=== PATIENT | female | born 1945 | race Caucasian/White ===

== ENCOUNTER 2023-08-26 09:45 | Outpatient (RCR) | payer MEDICARE, BC, SELFPAY | END 2023-12-24 23:59 | disposition home or self-care (01) | PROVIDERS: PCP Family Medicine; Visit Provider Family Medicine | DX: M70.62 Trochanteric bursitis, left hip (principal); M76.32 Iliotibial band syndrome, left leg; R26.9 Unspecified abnormalities of gait and mobility; M79.18 Myalgia, other site; M25.562 Pain in left knee; M54.9 Dorsalgia, unspecified; R29.898 Other symptoms and signs involving the musculoskeletal system; Z51.89 Encounter for other specified aftercare | CPT/HCPCS: 97110; 97140; 97162 ==

== ENCOUNTER 2025-04-21 12:23 | Outpatient (CLI) | payer MEDICARE, BC, SELFPAY ==
--- NOTE | 2025-04-21 13:07 | P.ANES_ITS ---
Anesthesia Charges Start Date/Time Anesthesia Start Date: 04/21/25 Anesthesia Start Time: 13:05 Stop Date/Time Anesthesia Stop Date: 04/21/25 Anesthesia Stop Time: 13:47 Summary Extremes of Age - Over 70 or under 1: MDA Coding CPT Codes CPT Codes: ANES UPR LWR GI NDSC PX - 14281 ([id number]) P2 - PATIENT W/MILD SYST DISEASE, QK - SPECIAL DELIVERY CLERK 2-4 CNCRNT ANES PROC, QX - STAINLESS STEEL FINISHER SVC W/ MD MED DIRECTION Additional Codes: Summary - Extremes of Age - Over 70 or under 1: MDA ([id number])
--- NOTE | 2025-04-21 13:07 | W.ANESCHARGE ---
Anesthesia Charges Start Date/Time Anesthesia Start Date: 04/21/25 Anesthesia Start Time: 13:05 Stop Date/Time Anesthesia Stop Date: 04/21/25 Anesthesia Stop Time: 13:47 Summary Extremes of Age - Over 70 or under 1: MDA Coding CPT Codes CPT Codes: ANES UPR LWR GI NDSC PX - 37462 ([id number]) P2 - PATIENT W/MILD SYST DISEASE, QK - SOFT WORK WRAPPER LAYER AND EXAMINER 2-4 CNCRNT ANES PROC, QX - WIRELESS TEAM MEMBER SVC W/ MD MED DIRECTION Additional Codes: Summary - Extremes of Age - Over 70 or under 1: MDA ([id number])
--- NOTE | 2025-04-21 13:49 | P.ANES_ITS ---
Anesthesia Charges Start Date/Time Anesthesia Start Date: 04/21/25 Anesthesia Start Time: 13:05 Stop Date/Time Anesthesia Stop Date: 04/21/25 Anesthesia Stop Time: 13:47 Summary Extremes of Age - Over 70 or under 1: BAKERY DEMONSTRATOR Coding CPT Codes CPT Codes: ANES UPR LWR GI NDSC PX - 26692 ([id number]) P2 - PATIENT W/MILD SYST DISEASE, QK - WEBBING WEAVER 2-4 CNCRNT ANES PROC, QX - BAKERY DEMONSTRATOR SVC W/ MD MED DIRECTION Additional Codes: Summary - Extremes of Age - Over 70 or under 1: BAKERY DEMONSTRATOR ([id number])
--- NOTE | 2025-04-21 13:49 | W.ANESCHARGE ---
Anesthesia Charges Start Date/Time Anesthesia Start Date: 04/21/25 Anesthesia Start Time: 13:05 Stop Date/Time Anesthesia Stop Date: 04/21/25 Anesthesia Stop Time: 13:47 Summary Extremes of Age - Over 70 or under 1: PEST CONTROL CHEMICAL TECHNICIAN Coding CPT Codes CPT Codes: ANES UPR LWR GI NDSC PX - 37409 ([id number]) P2 - PATIENT W/MILD SYST DISEASE, QK - SENIOR LINUX SYSTEMS ENGINEER 2-4 CNCRNT ANES PROC, QX - PEST CONTROL CHEMICAL TECHNICIAN SVC W/ MD MED DIRECTION Additional Codes: Summary - Extremes of Age - Over 70 or under 1: PEST CONTROL CHEMICAL TECHNICIAN ([id number])
== END 2025-04-21 12:24 | disposition home or self-care (01) ==
LOC: OP CLINIC 12:23
PROVIDERS: PCP Family Medicine; Visit Provider Internal Medicine Gastroenterology
DX: K25.9 Gastric ulcer, unspecified as acute or chronic, without hemorrhage or perforation (principal); K44.9 Diaphragmatic hernia without obstruction or gangrene; D50.9 Iron deficiency anemia, unspecified; K57.30 Diverticulosis of large intestine without perforation or abscess without bleeding
CPT/HCPCS: 00813; 43239; 45378; 88305; 99100; J2405; J2704

== ENCOUNTER 2025-05-31 08:48 | Day surgery (SDC) | payer MEDICARE, BC, SELFPAY ==
[2025-05-31] VITALS (23 sets, daily range): BP systolic 95–136; BP diastolic 60–97; PULSE 55–81; RESP 12–20; TEMP 36.1–37.2; O2SAT 94–100; BMI 24.9
[2025-05-31] MEDS: SODIUM CHLORIDE 0.9 % (FLUSH) 10 ML SYRINGE IVF (09:10)
[2025-05-31] MEDS: LACTATED RINGERS 1000 ML 1,000 ML 100 ML IV ×2 (09:10→10:44)
[2025-05-31] MEDS: ACETAMINOPHEN 500 MG TABLET 1000 MG PO ×3 (09:11→21:24)
[2025-05-31] MEDS: OXYCODONE (CR) 10 MG TAB.ER.12H PO (09:12)
[2025-05-31] MEDS: MIDAZOLAM HCL 1 MG/ML inj IVP (09:42)
--- NOTE | 2025-05-31 10:09 | CRLHL7_ITS ---
For Patients: As a result of the Cures Act, medical imaging exams and procedure reports are released immediately into your electronic medical record. You may view this report before your referring provider. If you have questions, please contact your health care provider. INDICATION: Postop TECHNIQUE: Two views of the left knee FINDINGS/IMPRESSION: Left knee arthroplasty in appropriate position postoperative soft tissue gas and edema. Dictated by Mariella Esquivel MD @ 06/02/2025 4:02:34 PM (Electronically Signed)
--- NOTE | 2025-05-31 10:11 | W.PM.H&PU ---
History & Physical Update History & Physical Update H&P Reviewed and patient assessed: No changes noted
[2025-05-31] MEDS: TRANEXAMIC ACID 100 MG/ML INJ 1000 MG IV (10:20)
--- NOTE | 2025-05-31 11:31 | PM.ORPRC ---
Procedure Note Date of procedure: 05/31/25 Procedure: PREOPERATIVE DIAGNOSIS: 1. Left knee osteoarthritis, primary, severe POSTOPERATIVE DIAGNOSIS: 1. Left knee osteoarthritis, primary, severe PROCEDURE: 1. Left total knee arthroplasty - subvastus SURGEON: Juan Mtz MD. POLYSOMNOGRAPHY TECH: ALEXYS Banuelos - Of note, a skilled back office medical assistant was critical for this case to aid in patient positioning, tissue retraction, limb manipulation/positioning, and closure. ANESTHESIA: Spinal anesthetic EBL: 50ml IMPLANTS: DePuy J&J all cemented TKA - Attune PS femur size 5 narrow Size 4 tibia 7 mm poly spacer 35 mm patella TOURNIQUET: 49 minutes at 250 torr COMPLICATIONS: None evident INDICATIONS: The patient is a pleasant 80-year-old female who has experienced severe left knee pain and difficulty bearing weight. Workup included x-rays which revealed severe osteoarthrosis in the knee. Given the deformity, the dysfunction, and the pain, as well as the failure of nonoperative management, recommendation was made for surgery. FINDINGS: Full-thickness cartilage loss throughout the lateral compartment and to a lesser degree medial and patellofemoral compartments. Degenerative meniscus pathology lateral greater than medial. Large effusion upon entering the joint. Resting genu valgum. DESCRIPTION OF PROCEDURE: Following a thorough discussion of risks, benefits, and alternatives consent was obtained and the left knee was marked. The patient was brought to the operating room and placed supine on the operating table. Induction of anesthesia was undertaken. 1 g IV Ancef and 1 g tranexamic acid was administered within 1 hr of incision preoperatively. Proper time-out was performed identifying proper patient, site, procedure. The operative extremity was prepped and draped in the appropriate sterile fashion using ChloraPrep after the patient was positioned supine with all bony prominences well padded. A longitudinal, anterior, midline skin incision was made starting approximately 3cm proximal to the superior pole of the patella and advanced distal to the tibial tubercle. A subvastus approach was utilized. A medial subperiosteal sleeve was created with knife, guzman elevator and curved osteotome. The retropatellar fatpad was resected and the synovium in the suprapatellar pouch excised to visualize the anterior femoral cortex. Femoral preparation was performed via an intramedullary guide. Step drill allowed access into the femoral canal. The distal cutting guide was placed with 6 ? of valgus and 11 mm cut on the distal femur. Femur was sized using a posterior referencing guide in 5? of external rotation after cross referencing with trans epicondylar access and Sudhakar's line. This found have a best fit with the sizing noted above. The 4 in 1 cutting block was then placed, and the distal femur shaped accordingly. The box cut was then created and the trial implant inserted to confirm appropriate fit. We turned our attention to the proximal tibia. Extramedullary guide was utilized for cutting with the goal of being 90 degree cut from the mechanical axis of the tibia in the varus/valgus plane utilizing tibial crest as the primary alignment. Initially a 3 mm resection was performed from the lateral tibial plateau. Ultimately, balancing was achieved in both flexion and extension in both varus and valgus. (Of note, the genu valgum required popliteal release to achieve appropriate balance.) The knee was able to achieve full extension as well comfortably. The patella was initially measured and found have a thickness of 23 mm. It was resected back to approximately 14 mm. It was sized to be a best fit with as noted above. This was drilled, trial placed. All trials were placed and found to have an excellent stability and balance. At this stage, trial implants were removed, the knee was thoroughly irrigated with normal saline, and the cement was mixed. After irrigation, the knee was thoroughly dried, and cement placed, with the real tibial and femoral implants placed along with the patella. Trial poly spacer was placed and confirmed to have excellent range of motion and full extension, and the real poly spacer opened and inserted. All extra cement was removed, and a 3 min Betadine soak performed. Finally, a final irrigation round with normal saline was performed. Closure performed with 0 PDS and #0 Stratafix for the quad tendon/retinaculum. 2-0 Vicryl/Stratafix for the subcutaneous and 4-0 Monocryl for subcuticular closure. Dressings were applied and the patient was awoken from anesthesia after the tourniquet deflated and transferred the PACU in stable condition. A skilled back office medical assistant was critical for this case to aid in patient positioning, tissue retraction, bone exposure, limb manipulation/positioning, patient safety, and closure. PLAN: 1. Weight bear as tolerated operative extremity. 2. 23 hr perioperative antibiotics. 3. Ice. 4. PT/OT consults for ambulation assistance/mobility education. 5. Social work consult for discharge planning. 6. DVT prophylaxis with at SCDs and aspirin twice daily.
--- NOTE | 2025-05-31 11:47 | P.ANES_ITS ---
Anesthesia Charges Start Date/Time Anesthesia Start Date: 05/31/25 Anesthesia Start Time: 09:57 Stop Date/Time Anesthesia Stop Date: 05/31/25 Anesthesia Stop Time: 12:05 Summary Extremes of Age - Over 70 or under 1: MDA Coding CPT Codes CPT Codes: ANESTH KNEE ARTHROPLASTY - 40490 ([id number]) P2 - PATIENT W/MILD SYST DISEASE, QK - LACTATION COORDINATOR 2-4 CNCRNT ANES PROC, QX - PAVING INSPECTOR SVC W/ MD MED DIRECTION Additional Codes: Summary - Extremes of Age - Over 70 or under 1: MDA ([id number])
--- NOTE | 2025-05-31 11:47 | W.ANESCHARGE ---
Anesthesia Charges Start Date/Time Anesthesia Start Date: 05/31/25 Anesthesia Start Time: 09:57 Stop Date/Time Anesthesia Stop Date: 05/31/25 Anesthesia Stop Time: 12:05 Summary Extremes of Age - Over 70 or under 1: MDA Coding CPT Codes CPT Codes: ANESTH KNEE ARTHROPLASTY - 43405 ([id number]) P2 - PATIENT W/MILD SYST DISEASE, QK - ASSISTANT COMMUNITY MANAGER 2-4 CNCRNT ANES PROC, QX - HEAT TREATING BLUER SVC W/ MD MED DIRECTION Additional Codes: Summary - Extremes of Age - Over 70 or under 1: MDA ([id number])
--- NOTE | 2025-05-31 12:03 | P.ANES_ITS ---
Anesthesia Charges Start Date/Time Anesthesia Start Date: 05/31/25 Anesthesia Start Time: 09:57 Stop Date/Time Anesthesia Stop Date: 05/31/25 Anesthesia Stop Time: 12:05 Summary Extremes of Age - Over 70 or under 1: SUPERVISOR ACCOUNTS RECEIVABLE Coding CPT Codes CPT Codes: ANESTH KNEE ARTHROPLASTY - 50308 ([id number]) P2 - PATIENT W/MILD SYST DISEASE, QK - SENIOR ENGINEERING TECH 2-4 CNCRNT ANES PROC, QX - SUPERVISOR ACCOUNTS RECEIVABLE SVC W/ MD MED DIRECTION Additional Codes: Summary - Extremes of Age - Over 70 or under 1: SUPERVISOR ACCOUNTS RECEIVABLE ([id number])
--- NOTE | 2025-05-31 12:03 | W.ANESCHARGE ---
Anesthesia Charges Start Date/Time Anesthesia Start Date: 05/31/25 Anesthesia Start Time: 09:57 Stop Date/Time Anesthesia Stop Date: 05/31/25 Anesthesia Stop Time: 12:05 Summary Extremes of Age - Over 70 or under 1: FOREIGN LANGUAGE INSTRUCTOR Coding CPT Codes CPT Codes: ANESTH KNEE ARTHROPLASTY - 10020 ([id number]) P2 - PATIENT W/MILD SYST DISEASE, QK - PUMPER HEAD 2-4 CNCRNT ANES PROC, QX - FOREIGN LANGUAGE INSTRUCTOR SVC W/ MD MED DIRECTION Additional Codes: Summary - Extremes of Age - Over 70 or under 1: FOREIGN LANGUAGE INSTRUCTOR ([id number])
--- NOTE | 2025-05-31 12:05 | SUR.PREOP ---
TIME?OUT:?0942 PT/RN/MDA?VERIFICATION?OF?SURGICAL?SITE,?PROCEDURE,?AND?CONSENT OBTAINED?PRIOR?TO?INVASIVE?PROCEDURE.
--- NOTE | 2025-05-31 12:06 | P.NB_ITS ---
Nerve Block Nerve Block Time Seen by Provider: 09:45 Date Seen: 05/31/25 Type of block requested by surgeon for post-operative analgesia: geniculars Side: left Time out performed: Yes Verification of patient name: Yes Verification of date of : Yes Site marking: site marked Name of person performing procedure: Luigi Continuous monitoring Was continuous monitoring of O2 sat, B/P, monitoring coordinator, recorded every 15 minutes?: Yes Procedure Checklist: sterile prep, needles and gloves Ultrasound guided. Images saved: Yes Medications given in 5ml increments after negative aspiration: Marcaine %: 0.25 mL: 9 Needle gauge: 25 Patient tolerated procedure well: Yes Block Charges Block Charge (with Pro Fee): Genicular Nerve Block
--- NOTE | 2025-05-31 12:06 | P.NB_ITS ---
Nerve Block Nerve Block Time Seen by Provider: 09:45 Date Seen: 05/31/25 Type of block requested by surgeon for post-operative analgesia: adductor canal Side: left Time out performed: Yes Verification of patient name: Yes Verification of date of : Yes Site marking: site marked Name of person performing procedure: Luigi Continuous monitoring Was continuous monitoring of O2 sat, B/P, monitoring engineer, recorded every 15 minutes?: Yes Procedure Checklist: sterile prep, needles and gloves Ultrasound guided. Images saved: Yes Medications given in 5ml increments after negative aspiration: Marcaine %: 0.25 mL: 15 Needle gauge: 20 Precedex (mcg): 25 Patient tolerated procedure well: Yes Block Charges Block Charge (with Pro Fee): Femoral Nerve Use of Ultrasound Machine for Block: Yes- US Guidance/pain block
[2025-05-31] MEDS: LACTATED RINGERS 1000 ML 1,000 ML 75 ML IV (13:10)
--- NOTE | 2025-05-31 14:58 | PC.NURSE ---
End of shift Note: Patient arrived from PACU around 1245. Alert and oriented no complaints of pain of nausea. Her blood pressure was a little soft to start with but has slowly trended up. Does not have much feeling in her legs but able to move her extremities. Will continue to monitor until next shift arrives.
--- NOTE | 2025-05-31 15:31 | PM.IMCN1 ---
Date of Consult Patient: Shahzad Patient Consult date: 05/31/25 Requesting Physician: Orthopedics Primary Care Provider: Jolie Rodrigues, DO Consult Narrative Reason for consult: Postop care hypertension, hypothyroidism, hypertensive kidney disease Narrative: Debbie Meng is a 80 year old woman undergoes elective left total knee arthroplasty today at [facility] with Dr. Juan Mtz under spinal anesthesia. Procedure uneventful. No complications. Estimated blood loss reported as 50 mL. Generally healthy and doing well with current medication regimen. Review of Systems Status of ROS: Reports: 6 or more systems reviewed and unremarkable except as noted in History and below [facility] Medical History (Updated 05/31/25 @ 15:44 by Chiki Holloway MD) OA (osteoarthritis) of knee ?M17.9 - Osteoarthritis of knee, unspecified (ICD-10) Gastritis ?K29.70 - Gastritis, unspecified, without bleeding (ICD-10) Synovitis and tenosynovitis in diseases classified elsewhere ?M65.80 - Other synovitis and tenosynovitis, unspecified site (ICD-10) Palmar wrist ganglion ?M67.439 - Ganglion, unspecified wrist (ICD-10) Gum inflammation ?K05.10 - Chronic gingivitis, plaque induced (ICD-10) Hypothyroidism ?E03.9 - Hypothyroidism, unspecified (ICD-10) Chronic fatigue syndrome ?G93.32 - Myalgic encephalomyelitis/chronic fatigue syndrome (ICD-10) Hypertension ?I10 - Essential (primary) hypertension (ICD-10) Migraines ?G43.909 - Migraine, unspecified, not intractable, without status migrainosus (ICD-10) Surgical History (Updated 05/31/25 @ 15:44 by Chiki Holloway MD) H/O tubal ligation ?Z98.51 - Tubal ligation status (ICD-10) S/P breast lumpectomy ?Z98.890 - Other specified postprocedural states (ICD-10) History of bunionectomy of both great toes (11/26/95) ?Z98.890 - Other specified postprocedural states (ICD-10) History of laparoscopic cholecystectomy ?Z90.49 - Acquired absence of other specified parts of digestive tract (ICD-10) History of carpal tunnel surgery of left wrist (08/03/12) ?Z98.890 - Other specified postprocedural states (ICD-10) History of carpal tunnel surgery of right wrist (09/21/12) ?Z98.890 - Other specified postprocedural states (ICD-10) 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) ?Z96.651 - Presence of right artificial knee joint (ICD-10) Social History What is your current living situation?: I presently have a place to live Problems where you live: no known problems In the past 12 months, utilities in danger of being shut off: no In past 12 months, lack of transportation kept you from medical appts, meetings, work, or getting things needed for daily living: no In the past 12 mos, have been you worried that your food would run out before you had money to buy more?: never true In the past 12 mos, the food you bought just didn't last and you didn't have money to buy more?: never true Smoking Status: Never smoker How often do you have a drink containing alcohol: monthly or less How many standard drinks containing alcohol do you have on a typical day: 1 or 2 How often do you have six or more drinks on one occasion: Never AUDIT-C Alcohol total score: 1 Non-prescribed substance use: denies use Caffeine: Yes (once in a while) How often does anyone, including family, friends and others, physically hurt you: never How often does anyone, including family, friends and others, insult or talk down to you: never How often does anyone, including family, friends and others, threaten you with harm: never How often does anyone, including family, friends and others, scream or curse at you: never Meds Home Medications and Allergies Home Medications ?Medication ?Instructions ?Recorded ?Confirmed ?Type chlorthalidone 25 mg tablet 25 mg PO DAILY 02/06/25 05/31/25 History levothyroxine 75 mcg tablet 75 mcg PO DAILY 02/06/25 05/31/25 History rosuvastatin 10 mg tablet 10 mg PO QPM 02/06/25 05/31/25 History sumatriptan succinate 50 mg tablet 50 mg PO Q2H PRN migraine 02/06/25 05/31/25 History omeprazole 40 mg capsule,delayed 40 mg PO DAILY 05/29/25 05/29/25 History release acetaminophen 500 mg capsule 500 - 1,000 mg (1 - 2 x 500 mg) PO 05/31/25 Rx Q6H PRN pain #100 caps aspirin 81 mg chewable tablet 81 mg PO BID for DVT prophylaxis 05/31/25 Rx (Aspirin Childrens) 30 days #60 tabs oxycodone 5 mg tablet 2.5 - 5 mg (0.5 - 1 x 5 mg) PO 05/31/25 Rx Q4-6H PRN Pain #42 tabs sennosides 8.6 mg tablet (Senna 17.2 mg (2 x 8.6 mg) PO BID PRN 05/31/25 Rx Lax) constipation #100 tabs Allergies Allergy/AdvReac Type Severity Reaction Status Date / Time amlodipine AdvReac Verified 05/31/25 09:01 codeine AdvReac Verified 05/31/25 09:01 lisinopril AdvReac Verified 05/31/25 09:01 Exam Narrative: Exam Narrative: Examined patient in her hospital room. Appears comfortable and in no acute distress. Alert and oriented x4. Friendly, articulate, cooperative. Vision and hearing are good. Neck is supple. No JVD or hepatojugular reflux. Lungs are clear to auscultation. Heart tones with regular rhythm, normal S1-S2. Abdomen with active bowel sounds, soft, nontender. Palpable pulses upper and lower extremities. No edema. Already moves all 4 extremities including affected left lower extremity. Const: Vital Signs, click to edit/add: Vital Signs - 24 hr 05/31/25 09:19 05/31/25 09:43 05/31/25 09:45 Temperature 99 F 99 F Pulse Rate 72 72 67 Pulse Rate [Pulse Oximeter] Respiratory Rate 16 16 16 Blood Pressure 127/89 108/93 H 110/70 Blood Pressure [Ri ght Arm] Pulse Oximetry 96 98 98 Oxygen Delivery Me thod Nasal Cannula Nasal Cannula Oxygen Flow Rate 2 2 05/31/25 12:00 05/31/25 12:05 05/31/25 12:10 Temperature 97.4 F L Pulse Rate 67 63 62 Pulse Rate [Pulse Oximeter] Respiratory Rate 14 14 12 Blood Pressure 101/62 105/60 99/62 Blood Pressure [Ri ght Arm] Pulse Oximetry 95 100 100 Oxygen Delivery Me thod Nasal Cannula OxyM ask OxyMask OxyMask Oxygen Flow Rate 10 10 6 05/31/25 12:15 05/31/25 12:20 05/31/25 12:25 Temperature 97.3 F L Pulse Rate 65 66 63 Pulse Rate [Pulse Oximeter] Respiratory Rate 14 16 16 Blood Pressure 98/62 98/62 98/63 Blood Pressure [Ri ght Arm] Pulse Oximetry 100 97 96 Oxygen Delivery Me thod OxyMask Room Air Room Air Oxygen Flow Rate 6 05/31/25 12:30 05/31/25 12:42 05/31/25 12:45 Temperature 97.3 F L 97.0 F L 97.0 F L Pulse Rate 68 Pulse Rate [Pulse Oximeter] 65 69 Respiratory Rate 14 20 20 Blood Pressure 103/63 Blood Pressure [Ri ght Arm] 97/66 107/66 Pulse Oximetry 95 97 97 Oxygen Delivery Me thod Room Air Room Air Room Air Oxygen Flow Rate 05/31/25 13:00 05/31/25 13:15 05/31/25 13:30 Temperature 97.0 F L 97.1 F L 97.1 F L Pulse Rate Pulse Rate [Pulse Oximeter] 67 56 L 55 L Respiratory Rate 20 20 20 Blood Pressure Blood Pressure [Ri ght Arm] 95/78 114/68 111/65 Pulse Oximetry 98 96 96 Oxygen Delivery Me thod Room Air Room Air Room Air Oxygen Flow Rate 05/31/25 13:45 05/31/25 14:00 05/31/25 14:30 Temperature 97.1 F L 97.1 F L 97.1 F L Pulse Rate Pulse Rate [Pulse Oximeter] 55 L 71 62 Respiratory Rate 20 20 20 Blood Pressure Blood Pressure [Ri ght Arm] 107/74 103/85 116/86 Pulse Oximetry 96 97 97 Oxygen Delivery Me thod Room Air Room Air Room Air Oxygen Flow Rate Assessment and Plan Assessment and plan (1) Osteoarthritis of left knee: Problem comment: Status post left total knee arthroplasty 05/31/2025 Status: Acute (2) Status post left knee replacement: Problem comment: Dr. Juan Mtz, [facility], 05/31/2025 Check postop hemoglobin Status: Acute (3) Hypertension: Problem comment: Will hold her chlorthalidone while in hospital and restarted it at time of discharge Check basic metabolic panel postop Status: Acute (4) CKD (chronic kidney disease) stage 3, GFR 30-59 ml/min: Problem comment: Check postop basic metabolic panel Status: Acute (5) Hypothyroidism: Problem comment: Resume levothyroxine postop Status: Acute Plan 1. Reviewed impression, plan, recommendations with patient and 2. Answered their questions to their satisfaction 3. Hospitalist service will follow patient while in hospital postop 4. Completed hospitalist portion of discharge for patient anticipating patient might be able to be discharged as early as tomorrow per Orthopedic surgery 5. Patient agreeable to above stated plans and recommendations Total Time Spent Total Time Spent: 50 minutes
[2025-05-31] MEDS: CEFAZOLIN 1 GM in 0.9 % SODIUM CHLORIDE Mini-bag 100 ML IVPB (17:29)
--- NOTE | 2025-05-31 19:47 | PC.NURSE ---
Active ice to knee and popiteal. Up with SBA, walker, & gait belt to bathroom. Tolerates regular diet, denies n/v. Pain controlled with PRN meds per DEC.
[2025-05-31] MEDS: SENNOSIDES 1 TAB TABLET 2 TAB PO (21:24)
[2025-05-31] MEDS: ASPIRIN 81 MG TABLET EC PO (21:35)
[2025-06-01 00:23] VITALS: RESP 17; O2SAT 95
[2025-06-01] MEDS: CEFAZOLIN 1 GM in 0.9 % SODIUM CHLORIDE Mini-bag 100 ML IVPB ×2 (00:35→07:59)
[2025-06-01 00:40] VITALS: BP 123/76; PULSE 80; RESP 17; TEMP 36.7; O2SAT 95
[2025-06-01 02:33] VITALS: BP 116/66; PULSE 70; RESP 17; TEMP 36.6; O2SAT 96
[2025-06-01] MEDS: ACETAMINOPHEN 500 MG TABLET 1000 MG PO (04:23)
[2025-06-01] MEDS: OMEPRAZOLE 20 MG CAPSULE DR 40 MG PO (06:33)
[2025-06-01] MEDS: LEVOTHYROXINE 75 MCG TABLET PO (06:34)
[2025-06-01 06:46] LABS: Hematocrit 31.2 % (33.0-51.0); Hemoglobin* 10.5 gm/dL (12.0-16.0); Mean Corpuscular HGB Conc 34 gm/dL (32-36); Mean Corpuscular Hemoglobin 31 pg (26-34); Mean Corpuscular Volume 91 fL (80-100); Red Blood Count 3.44 m/uL (4.00-5.20); White Blood Count* 8.67 K/uL (4.50-11.00)
--- NOTE | 2025-06-01 06:49 | PC.NURSE ---
Shift note ([id number]): Patient pleasant, alert and oriented. Ambulated with walker and stand by assist. Dressing clean, dry and intact. Given PRN Oxycodone?for left hip pain rated 5/10. Tolerating food and fluids. Saline locked at 2130.?
[2025-06-01 06:50] LABS: Slide Review Reflex No
[2025-06-01 06:54] LABS: Chloride* 99 mmol/L (96-114); Potassium* 3.5 mmol/L (3.6-5.1); Sodium* 134 mmol/L (135-149)
[2025-06-01 06:57] LABS: Anion Gap 4 mEq/L (7-15); Blood Urea Nitrogen* 20 mg/dL (7-30); Calcium* 9.0 mg/dL (8.4-10.6); Carbon Dioxide* 31 mmol/L (20-32); Creatinine* 0.8 mg/dL (0.5-1.5); Est. Creatinine Clearance* 41.72; Estimated Glomerular Filt Rate 75 ml/min; Glucose* 122 mg/dL (60-115)
[2025-06-01 07:00] VITALS: BP 122/80; PULSE 70; RESP 16; TEMP 36.6; O2SAT 96
--- NOTE | 2025-06-01 07:32 | P.ORPN_ITS ---
Subjective Subjective Time Seen by Provider: 07:32 Date Seen: 06/01/25 Principal diagnosis: Status post left knee replacement Interval history: Debbie is fairly comfortable this morning. She has some posterior knee discomfort. Tushar is coming to get her today for discharge. Ortho Exam Narrative Exam Narrative: Alert and oriented x3. Patient is in no acute distress. Converses without labored breathing. Hearing is grossly intact. Ambulates with a walker. Examination of the left knee shows the dressing is in place and intact. There is no erythema or warmth or sign of infection. Mild anterior knee hematoma. Calves are soft and nontender. CMS intact left lower extremity. She is able to straight leg raise. Const Vital Signs, click to edit/add: Vital Signs - 24 hr 05/31/25 09:19 05/31/25 09:43 05/31/25 09:45 Temperature 99 F 99 F Pulse Rate 72 72 67 Pulse Rate [Pulse Oximeter] Respiratory Rate 16 16 16 Blood Pressure 127/89 108/93 H 110/70 Blood Pressure [Left Arm] Blood Pressure [Right Arm] Pulse Oximetry 96 98 98 Oxygen Delivery Method Nasal Cannula Nasal Cannula Oxygen Flow Rate 2 2 05/31/25 12:00 05/31/25 12:05 05/31/25 12:10 Temperature 97.4 F L Pulse Rate 67 63 62 Pulse Rate [Pulse Oximeter] Respiratory Rate 14 14 12 Blood Pressure 101/62 105/60 99/62 Blood Pressure [Left Arm] Blood Pressure [Right Arm] Pulse Oximetry 95 100 100 Oxygen Delivery Method Nasal Cannula OxyMask OxyMask OxyMask Oxygen Flow Rate 10 10 6 05/31/25 12:15 05/31/25 12:20 05/31/25 12:25 Temperature 97.3 F L Pulse Rate 65 66 63 Pulse Rate [Pulse Oximeter] Respiratory Rate 14 16 16 Blood Pressure 98/62 98/62 98/63 Blood Pressure [Left Arm] Blood Pressure [Right Arm] Pulse Oximetry 100 97 96 Oxygen Delivery Method OxyMask Room Air Room Air Oxygen Flow Rate 6 05/31/25 12:30 05/31/25 12:42 05/31/25 12:45 Temperature 97.3 F L 97.0 F L 97.0 F L Pulse Rate 68 Pulse Rate [Pulse Oximeter] 65 69 Respiratory Rate 14 20 20 Blood Pressure 103/63 Blood Pressure [Left Arm] Blood Pressure [Right Arm] 97/66 107/66 Pulse Oximetry 95 97 97 Oxygen Delivery Method Room Air Room Air Room Air Oxygen Flow Rate 05/31/25 13:00 05/31/25 13:15 05/31/25 13:30 Temperature 97.0 F L 97.1 F L 97.1 F L Pulse Rate Pulse Rate [Pulse Oximeter] 67 56 L 55 L Respiratory Rate 20 20 20 Blood Pressure Blood Pressure [Left Arm] Blood Pressure [Right Arm] 95/78 114/68 111/65 Pulse Oximetry 98 96 96 Oxygen Delivery Method Room Air Room Air Room Air Oxygen Flow Rate 05/31/25 13:45 05/31/25 14:00 05/31/25 14:30 Temperature 97.1 F L 97.1 F L 97.1 F L Pulse Rate Pulse Rate [Pulse Oximeter] 55 L 71 62 Respiratory Rate 20 20 20 Blood Pressure Blood Pressure [Left Arm] Blood Pressure [Right Arm] 107/74 103/85 116/86 Pulse Oximetry 96 97 97 Oxygen Delivery Method Room Air Room Air Room Air Oxygen Flow Rate 05/31/25 15:00 05/31/25 15:00 05/31/25 15:00 Temperature 97.8 F Pulse Rate Pulse Rate [Pulse Oximeter] 76 Respiratory Rate 20 20 Blood Pressure Blood Pressure [Left Arm] Blood Pressure [Right Arm] 132/90 H Pulse Oximetry 94 94 94 Oxygen Delivery Method Room Air Room Air Oxygen Flow Rate 05/31/25 16:00 05/31/25 17:00 05/31/25 18:00 Temperature 97.8 F 97.7 F Pulse Rate Pulse Rate [Pulse Oximeter] 81 79 77 Respiratory Rate 20 20 20 Blood Pressure Blood Pressure [Left Arm] Blood Pressure [Right Arm] 126/97 H 125/81 103/61 Pulse Oximetry 95 96 94 Oxygen Delivery Method Room Air Room Air Room Air Oxygen Flow Rate 6 05/31/25 21:20 06/01/25 00:23 06/01/25 00:23 Temperature Pulse Rate Pulse Rate [Pulse Oximeter] Respiratory Rate 17 Blood Pressure Blood Pressure [Left Arm] Blood Pressure [Right Arm] 136/82 Pulse Oximetry 95 95 Oxygen Delivery Method Room Air Oxygen Flow Rate 06/01/25 00:40 06/01/25 02:33 Temperature 98.0 F 97.8 F Pulse Rate Pulse Rate [Pulse Oximeter] 80 70 Respiratory Rate 17 17 Blood Pressure Blood Pressure [Left Arm] 116/66 Blood Pressure [Right Arm] 123/76 Pulse Oximetry 95 96 Oxygen Delivery Method Room Air Room Air Oxygen Flow Rate Assessment and Plan Assessment and plan (1) Status post left knee replacement: Problem details: Dr. Juan Mtz, [facility], 05/31/2025 Check postop hemoglobin Status: Acute Assessment and Plan: Plan for discharge is today to home if they meet discharge criteria. DVT prophylaxis includes aspirin 81 mg twice daily x1 month, Compression stockings as needed for swelling. Frequent ambulation, every hour throughout the day. Remove dressing in 1 week. Observe wound and phone Orthopedics with any questions or concerns Return to clinic in 10 days to 2 weeks for a wound check Return to clinic in 6 weeks with surgeon Minimize narcotic use. Wean off and discontinue soon as possible. Activities as tolerated. No strenuous activity. Outpatient physical therapy as scheduled. Ice and elevate the operative extremity. No restriction on ice.
[2025-06-01] MEDS: ASPIRIN 81 MG TABLET EC PO (07:59)
[2025-06-01] MEDS: SENNOSIDES 1 TAB TABLET 2 TAB PO (07:59)
== END 2025-06-01 10:10 | disposition home or self-care (01) ==
LOC: OR 08:50 → MEDSURG 08:51
PROVIDERS: Internal Medicine; PCP Family Medicine; Visit Provider Orthopaedic Surgery Sports Medicine
PROC: (CPT 27447; principal; 2025-05-31 10:30)
DX: M17.12 Unilateral primary osteoarthritis, left knee (principal); G89.18 Other acute postprocedural pain; I12.9 Hypertensive chronic kidney disease with stage 1 through stage 4 chronic kidney disease, or unspecified chronic kidney disease; N18.30 Chronic kidney disease, stage 3 unspecified; E03.9 Hypothyroidism, unspecified; Z79.82 Long term (current) use of aspirin
CPT/HCPCS: 27447; 01402; 36415; 64447; 64454; 73560; 76942; 80048; 83735; 84100; 85027; 97110; 97116; 97161; 97165; 97530; 99100; A9270; C1776; J0665; J0690; J1100; J2250; J2371; J2405; J2704; J3010; J7120

== ENCOUNTER 2025-07-10 10:00 | Outpatient (RCR) | payer MEDICARE, BC, SELFPAY ==
--- NOTE | 2025-06-02 10:37 | PT.OPEX ---
PT [place] [facility] Eval PT [facility] Out[facility] Eval Start: 06/02/25 07:51 Freq: Status: Active Protocol: Document 06/02/25 07:52 KLV (Rec: 06/02/25 10:37 KLV [id number]) E-signed By Elizabeth Willis, PT Physical Therapy Outpatient Evaluation Insurance Information Recert Due Date 08/27/25 Insurance Name Medicare B,[employer] Medical Diagnosis S/P L TKA DOS 05/31/25 Treating Diagnosis Left knee pain, limited knee ROM, muscle weakness, antalgic gait Referring MD Mtz Subjective Subjective Debbie reports to PT s/p 2 days L TKA with 1 night stay in the hospital. Moderate pain mostly medial to knee. Managed with oxycodone and Tylenol. Using ice machine. Denies radicular symptoms. Denies nausea, lightheadedness, fever, excessive warmth, redness or drainage from bandage. Ambulating with 2WW. Lives in split level home and stairs are going well with step to gait. PMH: osteoporosis, previous R TKA 2012, HTN, hypothyroidism Pain Comments 02/18 Date of Last 06/01/25 Physician Visit Date of Next 06/13/25 Physician Visit Date of Surgery (If 05/31/25 applicable) Current Work Status Retired Objective Other/Pertinent Knee ROM: Objective -L 16-88 -R 0-120 Circumferential measurements (R/L cm): -mid patella 38/44.5 Incision covered with bandage: no redness, streaking, drainage or excessive warmth Denies radicular symptoms Jonathan sign: - Functional Test LEFS: Performed & Score Assessment Assessment/ Pt presents with signs and symptoms consistent with s/p Impression 2 days L TKA. DOS: 05/31/25. Current ROM 16-88. Anticipated deficits/impairments in pain, ROM, and strength. Pt would benefit from skilled PT interventions to facilitate return to PLOF and ambulating/stair negotiation without AD. Primary Functional Walking, standing, squatting, bending, stair Limitations negotiation, sleeping Plan of Care Rehabilitation Good Potential Physical Therapy By 4 weeks Goals Pt will be able to ascend/descend 1 flight of stairs in order to perform ADLs pain free. Pt will demonstrate full and pain free knee ROM in order to perform all ADLs including don/doffing shoes/ socks By 8 weeks Pt will exhibit 9 pt improvement in LEFS Outcome measure to demonstrate functional improvement and progress towards goals. Pt will tolerate gradual progression back to ADLs with <2/10 pain Patient will transition from walker to cane to independent gait with normal mechanics. Treatment Plan/ Gait Training,Ice/Cold/Vasopneumatic,Joint Mobilization Direct Interventions ,Manual Therapy,Neuromuscular Re-ed,Self-Care/Home Management,Therapeutic Activities,Therapeutic Exercises Frequency/Duration 1-2x/wk for 8 weeks Patient Will Be Completion of LTG(s),Independent w/HEP,Independently Discharged From Progressing Therapy Evaluation Billing Untimed Code 10 Treatment Minutes Complexity Low Certification Information Initial 06/02/25 Certification Date Ending Certification 08/27/25 Date Provider Signature Yes Required Provider Signature POC & Medical Necessity Shows Agreement With Physician NPI Number Write NPI# Here Physician Comment/ : Change Physician Signature Please Sign/Date Here & Date Requested
== END 2025-07-10 10:49 | disposition home or self-care (01) ==
PROVIDERS: PCP Family Medicine; Visit Provider Orthopaedic Surgery Sports Medicine
DX: Z47.1 Aftercare following joint replacement surgery (principal); Z96.652 Presence of left artificial knee joint; M25.562 Pain in left knee; Z51.89 Encounter for other specified aftercare
CPT/HCPCS: 97110; 97140; 97161; A9270; J2250; J3010